=== PATIENT | female | born 1990 | race Caucasian/White ===

== ENCOUNTER 2017-10-31 17:25 | Inpatient (IN) | payer BC ==
[2017-10-31] MEDS ORDERED: Water For Irrigation,Sterile 1,000 ML Container IRR PRN (17:55)
[2017-10-31] MEDS ORDERED: Lidocaine 1% 50 ML MDV INJECT PRN (17:55)
[2017-10-31] MEDS ORDERED: Tranexamic Acid 1,000 MG in Sodium Chloride 0.9% 100 ML IV PRN (17:55)
[2017-10-31] MEDS ORDERED: Nalbuphine 10 MG/1 ML Vial IVPUSH PRN (17:55)
[2017-10-31] MEDS ORDERED: Sodium Chloride 0.9% 10 ML Syringe FLUSH PRN (17:55)
[2017-10-31] MEDS ORDERED: Carboprost Tromethamine 250 MCG/1 ML Amp IM PRN (17:55)
[2017-10-31] MEDS ORDERED: Methylergonovine 0.2 MG/1 ML Amp IM PRN (17:55)
[2017-10-31] MEDS ORDERED: Misoprostol 200 MCG Tab PO PRN (17:55)
[2017-10-31] MEDS ORDERED: Sodium Chloride 0.9% 2.5 ML Syringe FLUSH PRN (17:55)
[2017-10-31] MEDS ORDERED: Butorphanol 1 MG/ML SDV IVPUSH PRN (17:55)
[2017-10-31] MEDS ORDERED: Oxytocin/0.9 % Sodium Chloride 30 UNIT/500 ML BAG IV SCH (18:00)
[2017-10-31] MEDS: Lactated Ringers 1,000 ML IV SCH ×2 (19:22→20:07)
--- NOTE | 2017-10-31 19:26 | PCM.PREANE ---
Preanesthetic Assessment - Anesthesia/Transfusion/Family Hx Anesthesia History: Prior Anesthesia Without Reaction - Review of Systems General: No Symptoms Pulmonary: No Symptoms Cardiovascular: No Symptoms Gastrointestinal: No Symptoms Neurological: No Symptoms - Physical Assessment NPO Status Date: 10/31/17 NPO Status Time: 11:00 ASA Class: 2E Mental Status: Alert & Oriented x3 Dentition: Reports: Normal Dentition ROM/Head Extension: Full - Lab Values: Laboratory Last Values WBC 11.52 K/uL (4.0-11.0) H 10/31/17 18:20 RBC 4.43 M/uL (4.30-5.90) 10/31/17 18:20 Hgb 11.5 g/dL (12.0-16.0) L 10/31/17 18:20 Hct 36.0 % (36.0-46.0) 10/31/17 18:20 MCV 81.3 fL (80.0-98.0) 10/31/17 18:20 MCH 26.0 pg (27.0-32.0) L 10/31/17 18:20 MCHC 31.9 g/dL (31.0-37.0) 10/31/17 18:20 RDW Std Deviation 43.5 fl (28.0-62.0) 10/31/17 18:20 RDW Coeff of Roxanne 15 % (11.0-15.0) 10/31/17 18:20 Plt Count 239 K/uL (150-400) 10/31/17 18:20 MPV 11.90 fL (7.40-12.00) 10/31/17 18:20 Nucleated RBC % 0.0 /100WBC 10/31/17 18:20 Nucleated RBCs # 0 K/uL 10/31/17 18:20 - Allergies Allergies/Adverse Reactions: Allergies Allergy/AdvReac Type Severity Reaction Status Date / Time No Known Allergies Allergy Verified 10/31/17 19:12 - Acknowledgements Anesthesia Type Planned: Epidural Pt an Appropriate Candidate for the Planned Anesthesia: Yes Alternatives and Risks of Anesthesia Discussed w Pt/Guardian: Yes Pt/Guardian Understands and Agrees with Anesthesia Plan: Yes PreAnesthesia Questionnaire - CURRENT (IN HOUSE) MEDS Current Meds: Current Medications Butorphanol Tartrate (Stadol) 1 mg IVPUSH Q1H PRN PRN Reason: Pain Carboprost Tromethamine (Hemabate Ds) 250 mcg IM ASDIRECTED PRN PRN Reason: Post Hemorrhage Lactated Ringer's (Ringers, Lactated) 1,000 mls @ 150 mls/hr IV ASDIRECTED [facility] Last Admin: 10/31/17 19:22 Dose: 150 mls/hr Oxytocin/Sodium Chloride (Oxytocin 30 Unit/500 Ml-Ns) 30 unit in 500 mls @ 250 mls/hr IV TITRATE [facility] Tranexamic Acid 1,000 mg/ (Sodium Chloride) 110 mls @ 660 mls/hr IV ONETIME PRN PRN Reason: Bleeding Lidocaine HCl (Xylocaine 1%) 50 ml INJECT .ONCE PRN PRN Reason: Laceration repair Methylergonovine Maleate (Methergine) 0.2 mg IM ASDIRECTED PRN PRN Reason: Post Hemorrhage Misoprostol (Cytotec) 200 mcg PO .ONCE PRN PRN Reason: Post Hemorrhage Nalbuphine HCl (Nubain) 10 mg IVPUSH Q1H PRN PRN Reason: Pain (severe 7-10) Sodium Chloride (Saline Flush) 10 ml FLUSH ASDIRECTED PRN PRN Reason: Keep Vein Open Sodium Chloride (Saline Flush) 2.5 ml FLUSH ASDIRECTED PRN PRN Reason: Keep Vein Open Sterile Water (Sterile Water For Irrigation) 1,000 ml IRR ASDIRECTED PRN PRN Reason: delivery Discontinued Medications Fentanyl/Bupivacaine HCl (Gshhhwqx-Ecrvr-Te 2 Mcg/Ml-0.125%) Confirm Administered Dose 100 mls @ as directed [facility] ONE Stop: 10/31/17 19:06
--- NOTE | 2017-10-31 19:30 | PCM.PRNOTE ---
- Free Text/Narrative Note: Anes Note Patient requests epidural for L&D. Risks and menthods were discussed. Sitting POsition. L3-L4, midline approach. Bet prep X 3. LOcal 1% lido. 17X3 7/8 tuohy needls. Epidural space easily achieved single attempt with ease. Cath threaded 3 cm with ease. Sterile dressing applied. Test 3 cc 1.5 lido with epi negative. Load 10 cc pump solution, in slow divided doses. Pump started at 8 cc he with 6 cc q 20 min prn bolus. Sachin well. Patient reports excellent analgesia. Charlie Flores CRNA.
[2017-10-31] MEDS ORDERED: Lanolin 100% Cream 7 GM Tube TOP PRN (20:59)
[2017-10-31] MEDS ORDERED: Acetaminophen 500 MG Tab PO PRN ×2 (20:59)
[2017-10-31] MEDS ORDERED: Ibuprofen 400 MG Tab PO PRN (20:59)
[2017-10-31] MEDS ORDERED: Benzocaine/Menthol 20%-0.5% Spray 78 GM Cannister TOP PRN (20:59)
[2017-10-31] MEDS ORDERED: Bisacodyl 10 MG Supp RECTAL PRN (20:59)
[2017-10-31] MEDS ORDERED: Aluminum Hydroxide/Magnesium Hydroxide/Simethicone Susp 30 ML Cup PO PRN (20:59)
[2017-10-31] MEDS ORDERED: Witch Hazel Medicated Pads 40/Jar TOP PRN (20:59)
[2017-10-31] MEDS ORDERED: Docusate Sodium 100 MG Cap PO PRN (20:59)
[2017-10-31] MEDS ORDERED: Ondansetron 4 MG/2 ML SDV IVPUSH PRN (20:59)
--- NOTE | 2017-10-31 23:07 | OR ---
SURGEON: Nadya Abreu M.D. DATE OF PROCEDURE: 10/31/2017 PREOPERATIVE DIAGNOSES: 1. A 39 and 6 week intrauterine . 2. Active labor. 3. Group B beta strep negative. POSTOPERATIVE DIAGNOSES: 1. A 39 and 6 week intrauterine . 2. Active labor. 3. Group B beta strep negative. PROCEDURE: Spontaneous vaginal delivery, 1st degree periurethral laceration repaired. RN MATERNITY: Rhoda De Jesus MS4. ANESTHESIA: Epidural. ESTIMATED BLOOD LOSS: 300 mL. FINDINGS: Viable female with Apgars score 9 at one minute, 9 at five minutes. Weight is pending. Spontaneous delivery, intact placenta, three-vessel cord. COMPLICATIONS: None. DISPOSITION: The patient in LDRP. Infant in nursery. PROCEDURE IN DETAIL: Renata is a 27-year-old, G2, P1, at 39 and 6 weeks' gestational age, who presented this evening with regular contractions that were quite intense in nature beginning at 4:00 p.m. On exam, she was found to be 5 cm, 90% effaced, - 2 station. She is group B beta strep negative. heart tones 120s with variability. The patient was admitted. Routine labs were drawn. IV hydration was initiated. The patient is requesting epidural. She underwent this satisfactorily, became more comfortable and continued to progress quite rapidly. Over the next approximately an hour, she progressed to complete, 100% effaced at a +1 station. With pushing efforts, there was an amniotic bag that was still felt to be intact. Therefore, amniotomy was performed. Clear fluid was returned and with the next pushing, it was easily pushed to a +3 station. With the next contraction, I was able to deliver the 's head atraumatically, spontaneously, followed by anterior shoulder push and remainder of the body without difficulty. The 's oropharynx and nares were bulb suctioned. Cord was clamped x2 and cut. was handed off to her mother with attending nursing staff at side. Cord arterial, cord venous, cord blood sampling were obtained. Light suprapubic pressure was applied while the placenta was delivered spontaneously intact. Vigorous fundal uterine massage was then applied while 30 units Pitocin was delivered in 500 mL of IV fluid. Upon inspection of cervix, vaginal sidewalls, and perineum, there was found to be a first-degree right periurethral labial laceration that was repaired using 3-0 Monocryl in continuous running fashion. Hemostasis appeared evident. Sponge count was correct. Uterus remained firm. Hemostasis was evident. The patient remained in LDRP. Infant to nursery. ZACHARY / OLIVIA /[id number]
[2017-11-01] MEDS: Ibuprofen 800 MG Tab PO PRN ×2 (00:55→10:37)
[2017-11-01] MEDS: oxyCODONE 5 MG Tab PO PRN ×3 (01:06→21:25)
--- NOTE | 2017-11-01 07:50 | PCM.PNPP ---
<Viktoria De Jesus - Last Filed: 11/01/17 07:45> - General Info Date of Service: 11/01/17 Admission Dx/Problem (Free Text): 39/6 IUP, presented in active labor, . Subjective Update: Patient is doing well. Pain is tolerable with medication. Bottle feeding. Lochia - WNL. Tolerating food with no n/v. Urinating. No bowel movement or flatus present. Ambulating. Anticipate discharge this evening. Functional Status: Reports: Pain Controlled, Tolerating Diet, Ambulating, Urinating - Review of Systems General: Denies: Fever, Chills HEENT: Denies: Headaches Pulmonary: Denies: Shortness of Breath, Pleuritic Chest Pain Cardiovascular: Denies: Chest Pain, Palpitations, Lightheadedness Gastrointestinal: Denies: Flatus, Nausea, Vomiting - General Info Date of Service: 11/01/17 - Patient Data Vital Signs - Most Recent: Last Vital Signs Temp 36.8 C 11/01/17 07:37 Pulse 85 11/01/17 07:37 Resp 17 11/01/17 07:37 BP 130/71 11/01/17 07:37 Pulse Ox 98 11/01/17 07:37 Weight - Most Recent: 127.006 kg Lab Results - Last 24 Hours: Laboratory Results - last 24 hr 10/31/17 10/31/17 10/31/17 Range/Units 18:20 18:20 20:30 WBC 11.52 H (4.0-11.0) K/uL RBC 4.43 (4.30-5.90) M/uL Hgb 11.5 L (12.0-16.0) g/dL Hct 36.0 (36.0-46.0) % MCV 81.3 (80.0-98.0) fL MCH 26.0 L (27.0-32.0) pg MCHC 31.9 (31.0-37.0) g/dL RDW Std Deviation 43.5 (28.0-62.0) fl RDW Coeff of Roxanne 15 (11.0-15.0) % Plt Count 239 (150-400) K/uL MPV 11.90 (7.40-12.00) fL Nucleated RBC % 0.0 /100WBC Nucleated RBCs # 0 K/uL Cord ABG pH 7.374 (7.18-7.38) Cord ABG Base Excess -3 (-10--2) Cord VBG pH 7.341 (7.25-7.45) Cord VBG Base Excess -4 (-10--2) Blood Type B POSITIVE Antibody Screen NEGATIVE 11/01/17 Range/Units 06:03 WBC (4.0-11.0) K/uL RBC (4.30-5.90) M/uL Hgb 10.0 L (12.0-16.0) g/dL Hct 31.4 L (36.0-46.0) % MCV (80.0-98.0) fL MCH (27.0-32.0) pg MCHC (31.0-37.0) g/dL RDW Std Deviation (28.0-62.0) fl RDW Coeff of Roxanne (11.0-15.0) % Plt Count (150-400) K/uL MPV (7.40-12.00) fL Nucleated RBC % /100WBC Nucleated RBCs # K/uL Cord ABG pH (7.18-7.38) Cord ABG Base Excess (-10--2) Cord VBG pH (7.25-7.45) Cord VBG Base Excess (-10--2) Blood Type Antibody Screen Med Orders - Current: Current Medications Acetaminophen (Tylenol Extra Strength) 500 mg PO Q4H PRN PRN Reason: Pain Acetaminophen (Tylenol Extra Strength) 1,000 mg PO Q4H PRN PRN Reason: Pain Al Hydroxide/Mg Hydroxide (Mag-Al Plus) 30 ml PO Q8H PRN PRN Reason: Heartburn Benzocaine/Menthol (Dermoplast Pain Relief 20%-0.5% [place]) 78 gm TOP ASDIRECTED PRN PRN Reason: Perineal Comfort Measure Last Admin: 11/01/17 00:56 Dose: 1 spray Bisacodyl (Dulcolax) 10 mg RECTAL .ONCE PRN PRN Reason: Constipation Carboprost Tromethamine (Hemabate Ds) 250 mcg IM ASDIRECTED PRN PRN Reason: Post Hemorrhage Docusate Sodium (Colace) 100 mg PO BID PRN PRN Reason: Constipation Last Admin: 11/01/17 01:06 Dose: 100 mg Emollient Ointment (Lansinoh Hpa) 0 gm TOP ASDIRECTED PRN PRN Reason: Sore Nipples Lactated Ringer's (Ringers, Lactated) 1,000 mls @ 150 mls/hr IV ASDIRECTED [facility] Last Admin: 10/31/17 20:07 Dose: 150 mls/hr Oxytocin/Sodium Chloride (Oxytocin 30 Unit/500 Ml-Ns) 30 unit in 500 mls @ 250 mls/hr IV TITRATE [facility] Tranexamic Acid 1,000 mg/ (Sodium Chloride) 110 mls @ 660 mls/hr IV ONETIME PRN PRN Reason: Bleeding Ibuprofen (Motrin) 400 mg PO Q4H PRN PRN Reason: Pain Ibuprofen (Motrin) 800 mg PO Q6H PRN PRN Reason: Pain Last Admin: 11/01/17 00:55 Dose: 800 mg Methylergonovine Maleate (Methergine) 0.2 mg IM ASDIRECTED PRN PRN Reason: Post Hemorrhage Misoprostol (Cytotec) 200 mcg PO .ONCE PRN PRN Reason: Post Hemorrhage Nalbuphine HCl (Nubain) 10 mg IVPUSH Q1H PRN PRN Reason: Pain (severe 7-10) Ondansetron HCl (Zofran) 4 mg IVPUSH Q6H PRN PRN Reason: Nausea/Vomiting Oxycodone HCl (Oxycodone) 5 mg PO Q2H PRN PRN Reason: Pain Last Admin: 11/01/17 05:28 Dose: 5 mg Sodium Chloride (Saline Flush) 10 ml FLUSH ASDIRECTED PRN PRN Reason: Keep Vein Open Sodium Chloride (Saline Flush) 2.5 ml FLUSH ASDIRECTED PRN PRN Reason: Keep Vein Open Witch Frances (Tucks) 1 pad TOP ASDIRECTED PRN PRN Reason: comfort care Last Admin: 11/01/17 00:56 Dose: 1 pad Discontinued Medications Butorphanol Tartrate (Stadol) 1 mg IVPUSH Q1H PRN PRN Reason: Pain Fentanyl/Bupivacaine HCl (Quufhfks-Vbmyi-Yq 2 Mcg/Ml-0.125%) Confirm Administered Dose 100 mls @ as directed EP .STK-MED ONE Stop: 10/31/17 19:06 Lidocaine HCl (Xylocaine 1%) 50 ml INJECT .ONCE PRN PRN Reason: Laceration repair Sterile Water (Sterile Water For Irrigation) 1,000 ml IRR ASDIRECTED PRN PRN Reason: delivery Last Admin: 10/31/17 20:11 Dose: 1,000 ml - Infant Interaction Disposition, : in Room with Family Interaction: Holding Infant Feeding: Bottle Fed Infant Support Person: , Mother, Sister - Recovery Exam Fundal Tone: Firm Fundal Level: 2 Fingerbreadths Below Umbilicus Fundal Placement: Midline Lochia Amount: Scant Lochia Color: Rubra/Red Episiotomy/Laceration: Approximated Bladder Status: Voiding Urinary Elimination: Voided - Exam General: Alert, Oriented, No Acute Distress Lungs: Clear to Auscultation, Normal Respiratory Effort Cardiovascular: Regular Rate, Regular Rhythm GI/Abdominal Exam: Soft, Non-Tender Extremities: Pedal Edema (1+) Skin: Warm, Dry Psy/Mental Status: Alert - Problem List & Annotations (1) Vaginal delivery SNOMED Code(s): 463188799 Code(s): O80 - ENCOUNTER FOR FULL-TERM UNCOMPLICATED DELIVERY Status: Acute Current Visit: Yes - Assessment Assessment:: PPD #1. 39/6 IUP, presented in active labor, with . Stable. Anticipate discharge this evening. - Plan Plan:: Reviewed discharge instructions. Pelvic rest for 6 weeks. Take OTC ibuprofen/ tylenol as needed for pain. Call if fever greater than 101 or bleeding through a heavy pad in an hour. Reviewed post- depression symptoms. Follow-up appointment in 6 weeks. <Nadya Abreu - Last Filed: 11/01/17 08:08> - Patient Data Vital Signs - Most Recent: Last Vital Signs Temp 36.8 C 11/01/17 07:37 Pulse 85 11/01/17 07:37 Resp 17 11/01/17 07:37 BP 130/71 11/01/17 07:37 Pulse Ox 98 11/01/17 07:37 Lab Results - Last 24 Hours: Laboratory Results - last 24 hr 10/31/17 10/31/17 10/31/17 Range/Units 18:20 18:20 20:30 WBC 11.52 H (4.0-11.0) K/uL RBC 4.43 (4.30-5.90) M/uL Hgb 11.5 L (12.0-16.0) g/dL Hct 36.0 (36.0-46.0) % MCV 81.3 (80.0-98.0) fL MCH 26.0 L (27.0-32.0) pg MCHC 31.9 (31.0-37.0) g/dL RDW Std Deviation 43.5 (28.0-62.0) fl RDW Coeff of Roxanne 15 (11.0-15.0) % Plt Count 239 (150-400) K/uL MPV 11.90 (7.40-12.00) fL Nucleated RBC % 0.0 /100WBC Nucleated RBCs # 0 K/uL Cord ABG pH 7.374 (7.18-7.38) Cord ABG Base Excess -3 (-10--2) Cord VBG pH 7.341 (7.25-7.45) Cord VBG Base Excess -4 (-10--2) Blood Type B POSITIVE Antibody Screen NEGATIVE 11/01/17 Range/Units 06:03 WBC (4.0-11.0) K/uL RBC (4.30-5.90) M/uL Hgb 10.0 L (12.0-16.0) g/dL Hct 31.4 L (36.0-46.0) % MCV (80.0-98.0) fL MCH (27.0-32.0) pg MCHC (31.0-37.0) g/dL RDW Std Deviation (28.0-62.0) fl RDW Coeff of Roxanne (11.0-15.0) % Plt Count (150-400) K/uL MPV (7.40-12.00) fL Nucleated RBC % /100WBC Nucleated RBCs # K/uL Cord ABG pH (7.18-7.38) Cord ABG Base Excess (-10--2) Cord VBG pH (7.25-7.45) Cord VBG Base Excess (-10--2) Blood Type Antibody Screen Med Orders - Current: Current Medications Acetaminophen (Tylenol Extra Strength) 500 mg PO Q4H PRN PRN Reason: Pain Acetaminophen (Tylenol Extra Strength) 1,000 mg PO Q4H PRN PRN Reason: Pain Al Hydroxide/Mg Hydroxide (Mag-Al Plus) 30 ml PO Q8H PRN PRN Reason: Heartburn Benzocaine/Menthol (Dermoplast Pain Relief 20%-0.5% [place]) 78 gm TOP ASDIRECTED PRN PRN Reason: Perineal Comfort Measure Last Admin: 11/01/17 00:56 Dose: 1 spray Bisacodyl (Dulcolax) 10 mg RECTAL .ONCE PRN PRN Reason: Constipation Carboprost Tromethamine (Hemabate Ds) 250 mcg IM ASDIRECTED PRN PRN Reason: Post Hemorrhage Docusate Sodium (Colace) 100 mg PO BID PRN PRN Reason: Constipation Last Admin: 11/01/17 01:06 Dose: 100 mg Emollient Ointment (Lansinoh Hpa) 0 gm TOP ASDIRECTED PRN PRN Reason: Sore Nipples Lactated Ringer's (Ringers, Lactated) 1,000 mls @ 150 mls/hr IV ASDIRECTED [facility] Last Admin: 10/31/17 20:07 Dose: 150 mls/hr Oxytocin/Sodium Chloride (Oxytocin 30 Unit/500 Ml-Ns) 30 unit in 500 mls @ 250 mls/hr IV TITRATE [facility] Tranexamic Acid 1,000 mg/ (Sodium Chloride) 110 mls @ 660 mls/hr IV ONETIME PRN PRN Reason: Bleeding Ibuprofen (Motrin) 400 mg PO Q4H PRN PRN Reason: Pain Ibuprofen (Motrin) 800 mg PO Q6H PRN PRN Reason: Pain Last Admin: 11/01/17 00:55 Dose: 800 mg Methylergonovine Maleate (Methergine) 0.2 mg IM ASDIRECTED PRN PRN Reason: Post Hemorrhage Misoprostol (Cytotec) 200 mcg PO .ONCE PRN PRN Reason: Post Hemorrhage Nalbuphine HCl (Nubain) 10 mg IVPUSH Q1H PRN PRN Reason: Pain (severe 7-10) Ondansetron HCl (Zofran) 4 mg IVPUSH Q6H PRN PRN Reason: Nausea/Vomiting Oxycodone HCl (Oxycodone) 5 mg PO Q2H PRN PRN Reason: Pain Last Admin: 11/01/17 05:28 Dose: 5 mg Sodium Chloride (Saline Flush) 10 ml FLUSH ASDIRECTED PRN PRN Reason: Keep Vein Open Sodium Chloride (Saline Flush) 2.5 ml FLUSH ASDIRECTED PRN PRN Reason: Keep Vein Open Witch Frances (Tucks) 1 pad TOP ASDIRECTED PRN PRN Reason: comfort care Last Admin: 11/01/17 00:56 Dose: 1 pad Discontinued Medications Butorphanol Tartrate (Stadol) 1 mg IVPUSH Q1H PRN PRN Reason: Pain Fentanyl/Bupivacaine HCl (Bypkqcfl-Vmrxw-Qo 2 Mcg/Ml-0.125%) Confirm Administered Dose 100 mls @ as directed EP .STK-MED ONE Stop: 10/31/17 19:06 Lidocaine HCl (Xylocaine 1%) 50 ml INJECT .ONCE PRN PRN Reason: Laceration repair Sterile Water (Sterile Water For Irrigation) 1,000 ml IRR ASDIRECTED PRN PRN Reason: delivery Last Admin: 10/31/17 20:11 Dose: 1,000 ml - Problem List & Annotations (1) Vaginal delivery SNOMED Code(s): 709520268 Code(s): O80 - ENCOUNTER FOR FULL-TERM UNCOMPLICATED DELIVERY Status: Acute Current Visit: Yes - Problem List Review Problem List Initiated/Reviewed/Updated: Yes - My Orders Last 24 Hours: My Active Orders 10/31/17 17:55 Patient Status [ADT] Routine Heart Tones [RC] CONTINUOUS Non Stress Test [RC] PER UNIT ROUTINE Vaginal Exam [RC] PRN Vital Signs [RC] PER UNIT ROUTINE Carboprost Tromethamine [Hemabate DS] 250 mcg IM ASDIRECTED PRN Methylergonovine [Methergine] 0.2 mg IM ASDIRECTED PRN Misoprostol [Cytotec] 200 mcg PO .ONCE PRN Nalbuphine [Nubain] 10 mg IVPUSH Q1H PRN Sodium Chloride 0.9% [Saline Flush] 10 ml FLUSH ASDIRECTED PRN Sodium Chloride 0.9% [Saline Flush] 2.5 ml FLUSH ASDIRECTED PRN Tranexamic Acid [Cyklokapron] 1,000 mg Sodium Chloride 0.9% [Normal Saline] 100 ml IV ONETIME Peripheral IV Insertion Adult [OM.PC] Routine Resuscitation Status Routine 10/31/17 18:00 Lactated Ringers [Ringers, Lactated] 1,000 ml IV ASDIRECTED Oxytocin/0.9 % Sodium Chloride [Oxytocin 30 Unit/500 ML-NS] 30 unit in 500 ml IV TITRATE 10/31/17 20:59 Patient Status [ADT] Routine May Shower [RC] ASDIRECTED Up ad Rhianna [RC] ASDIRECTED Vital Signs [RC] PER UNIT ROUTINE Acetaminophen [Tylenol Extra Strength] 1,000 mg PO Q4H PRN Acetaminophen [Tylenol Extra Strength] 500 mg PO Q4H PRN Alum Hydrox/Mag Hydrox/Simeth [Mag-Al Plus] 30 ml PO Q8H PRN Benzocaine/Menthol [Dermoplast Pain Relief 20%-0.5% [place]] 78 gm TOP ASDIRECTED PRN Bisacodyl [Dulcolax] 10 mg RECTAL .ONCE PRN Docusate Sodium [Colace] 100 mg PO BID PRN Ibuprofen [Motrin] 400 mg PO Q4H PRN Ibuprofen [Motrin] 800 mg PO Q6H PRN Lanolin [Lansinoh HPA] See Dose Instructions TOP ASDIRECTED PRN Ondansetron [Zofran] 4 mg IVPUSH Q6H PRN Witch Frances [Tucks] 1 pad TOP ASDIRECTED PRN oxyCODONE 5 mg PO Q2H PRN Assess Lochia [WOMSER] Per Unit Routine Assess Uterine Involution [WOMSER] Per Unit Routine Breast Pump [WOMSER] Per Unit Routine Ice Therapy [OM.PC] Per Unit Routine Perineal Care [OM.PC] Per Unit Routine Peripheral IV Discontinue [OM.PC] Routine Sitz Bath [OM.PC] Per Unit Routine 10/31/17 Dinner Regular Diet [DIET] 11/01/17 08:07 Ready for Discharge [RC] PER UNIT ROUTINE - Plan Plan:: Patient seen and examined, agree with above
--- NOTE | 2017-11-01 08:16 | PCM48HPAN ---
Post Anesthesia Note - EVALUATION WITHIN 48HRS OF ANESTHETIC Vital Signs in Normal Range: Yes Patient Participated in Evaluation: Yes Respiratory Function Stable: Yes Airway Patent: Yes Cardiovascular Function Stable: Yes Hydration Status Stable: Yes Pain Control Satisfactory: Yes Nausea and Vomiting Control Satisfactory: Yes Mental Status Recovered: Yes Resp Rate: 17
== END 2017-11-01 22:35 | disposition home or self-care (01) | DRG 560 ==
LOC: MW.OBCHECK 17:25 → MW.OB 17:26 → MW.OBCHECK 17:55 → MW.OB 17:55 → OBSVTOIN 20:30 → MW.OB 23:31
PROVIDERS: ADMIT Obstetrics & Gynecology; ATTEND Obstetrics & Gynecology
PROC: 10E0XZZ Delivery of Products of Conception, External Approach (ICD-10-PCS; principal; 2017-10-31)
PROC: 0HQ9XZZ Repair Perineum Skin, External Approach (ICD-10-PCS; 2017-10-31)
DX: O70.0 First degree perineal laceration during delivery (principal); Z3A.39 39 weeks gestation of pregnancy; Z37.0 Single live birth
CPT/HCPCS: 36415; 59025; 59409; 82803; 85014; 85018; 85027; 86850; 86900; 86901; A9270-GY; J7120

== ENCOUNTER 2018-02-24 19:49 | Emergency (ER) | payer BC ==
--- NOTE | 2018-02-24 20:18 | EDM.PDOC ---
ED HPI GENERAL MEDICAL PROBLEM - General Chief Complaint: Headache Stated Complaint: MIGRAINE Time Seen by Provider: 02/24/18 20:29 Source of Information: Reports: Patient History Limitations: Reports: No Limitations - History of Present Illness INITIAL COMMENTS - FREE TEXT/NARRATIVE: HISTORY AND PHYSICAL: []27-year-old female presenting with a migraine headache for the last 4 days History of Present Illness: []Patient has history of cluster headaches and migraine headaches She has not taken anything [id number] for these headaches such as Excedrin Migraine or similar product Patient states she has not seen a neurologist when questioned Patient did have nausea and vomiting 2 days ago She is wearing her sunglasses due to the light hurting her eyes Review of Systems: As per history of present illness and below otherwise all systems reviewed and negative. Past medical history: As per history of present illness and as reviewed below otherwise noncontributory. Surgical history: As per history of present illness and as reviewed below otherwise noncontributory. Social history: No reported history of drug or alcohol abuse. Family history: As per history of present illness and as reviewed below otherwise noncontributory. Physical exam: Alert and oriented female speaking softly and is talking loud causes increased pain. Complaining of some neck pain but is able to touch her chin to her chest HEENT: Atraumatic, normocehpalic, pupils reactive, negative for conjunctival pallor or scleral icterus, mucous membranes moist, throat clear, neck supple, nontender, trachea midline. PERRLA, Lungs: Clear to auscultation, breath sounds equal bilaterally, chest non tender. Heart: S1S2, regular, negative for clicks, rubs, or JVD. Abdomen: Soft, nondistended, nontender. Negative for masses or hepatossplenmegaly. Negative for costovertebral tenderness. Pelvis: Stable nontender. Genitourinary: Deferred. Rectal: Deferred Extremities: Atraumatic, negative for cords or calf pain. Neurovascular unremarkable. Neuro: Awake, alert, oriented. Cranial nerves II through XII unremarkable. Cerebellum unremarkable. Motor and sensory unremarkable throughout. Exam nonfocal. Course of action: Patient is improved with the fluids and medications given Diagnostics: []CBC CMP Therapeutics: []1 L fluid Ativan Compazine Benadryl Toradol Impression: []Migraine Plan: []Discharge home Referral to Dr. Fatou Hobbs , neurologist Follow-up with your primary care in the next 2-3 days Return to emergency department as directed and discussed Definitive disposition and diagnosis as appropriate pending reevaluation and review of above. 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 - Physical Exam Exam: See Below (See dictation) Course - Vital Signs Last Recorded V/S: Last Vital Signs Temp 36.3 C 02/24/18 20:14 Pulse 80 02/24/18 20:14 Resp 16 02/24/18 20:14 BP 160/90 H 02/24/18 20:14 Pulse Ox 98 02/24/18 20:14 - Orders/Labs/Meds Orders: Active Orders 24 hr Category Date Time Status CULTURE STREP A CONFIRMATION [] Stat Lab 02/24/18 20:50 Results STREP SCRN A RAPID W CULT CONF [] Stat Lab 02/24/18 20:50 Ordered Sodium Chloride 0.9% [Normal Saline] 1,000 ml Med 02/24/18 20:28 Active IV STAT Sodium Chloride 0.9% [Saline Flush] Med 02/24/18 20:28 Active 10 ml FLUSH ASDIRECTED PRN Sodium Chloride 0.9% [Saline Flush] Med 02/24/18 20:28 Active 2.5 ml FLUSH ASDIRECTED PRN Saline Lock Insert [OM.PC] Stat Oth 02/24/18 20:28 Ordered Medication Orders Sodium Chloride (Normal Saline) 1,000 mls @ 999 mls/hr IV STAT ONE Stop: 02/24/18 21:28 Last Admin: 02/24/18 20:43 Dose: 999 mls/hr Sodium Chloride (Saline Flush) 10 ml FLUSH ASDIRECTED PRN PRN Reason: Keep Vein Open Sodium Chloride (Saline Flush) 2.5 ml FLUSH ASDIRECTED PRN PRN Reason: Keep Vein Open Labs: Laboratory Tests 02/24/18 02/24/18 Range/Units 20:36 20:36 WBC 10.98 (4.0-11.0) K/uL RBC 4.85 (4.30-5.90) M/uL Hgb 12.7 (12.0-16.0) g/dL Hct 39.7 (36.0-46.0) % MCV 81.9 (80.0-98.0) fL MCH 26.2 L (27.0-32.0) pg MCHC 32.0 (31.0-37.0) g/dL RDW Std Deviation 43.4 (28.0-62.0) fl RDW Coeff of Roxanne 15 (11.0-15.0) % Plt Count 310 (150-400) K/uL MPV 10.90 (7.40-12.00) fL Neut % (Auto) 58.6 (48.0-80.0) % Lymph % (Auto) 32.6 (16.0-40.0) % [place] % (Auto) 5.7 (0.0-15.0) % Eos % (Auto) 2.6 (0.0-7.0) % Baso % (Auto) 0.5 (0.0-1.5) % Neut # (Auto) 6.4 H (1.4-5.7) K/uL Lymph # (Auto) 3.6 H (0.6-2.4) K/uL [place] # (Auto) 0.6 (0.0-0.8) K/uL Eos # (Auto) 0.3 (0.0-0.7) K/uL Baso # (Auto) 0.1 (0.0-0.1) K/uL Nucleated RBC % 0.0 /100WBC Nucleated RBCs # 0 K/uL Sodium 135 L (136-145) mmol/L Potassium 3.7 (3.5-5.1) mmol/L Chloride 104 (98-107) mmol/L Carbon Dioxide 26.7 (21.0-32.0) mmol/L BUN 14 (7.0-18.0) mg/dL Creatinine 1.0 (0.6-1.0) mg/dL Est Cr Clr Drug Dosing 75.37 mL/min Estimated GFR (MDRD) > 60.0 ml/min Glucose 110 H (74-106) mg/dL Calcium 8.9 (8.5-10.1) mg/dL Total Bilirubin 0.1 L (0.2-1.0) mg/dL AST 15 (15-37) IU/L ALT 23 (14-63) IU/L Alkaline Phosphatase 96 (46-116) U/L Total Protein 7.4 (6.4-8.2) g/dL Albumin 3.2 L (3.4-5.0) g/dL Globulin 4.2 H (2.0-3.5) g/dL Albumin/Globulin Ratio 0.8 L (1.3-2.8) Meds: Medications Generic Name Dose Route Start Last Admin Trade Name Freelida PRN Reason Stop Dose Admin Sodium Chloride 1,000 mls @ 999 mls/hr 02/24/18 20:28 02/24/18 20:43 Normal Saline IV 02/24/18 21:28 999 mls/hr STAT ONE Administration Sodium Chloride 10 ml 02/24/18 20:28 Saline Flush FLUSH ASDIRECTED PRN Keep Vein Open Sodium Chloride 2.5 ml 02/24/18 20:28 Saline Flush FLUSH ASDIRECTED PRN Keep Vein Open Discontinued Medications Generic Name Dose Route Start Last Admin Trade Name Freq PRN Reason Stop Dose Admin Diphenhydramine HCl 25 mg 02/24/18 20:28 02/24/18 20:46 Benadryl IVPUSH 02/24/18 20:29 25 mg ONETIME ONE Administration Ketorolac Tromethamine 30 mg 02/24/18 20:28 08/22/18 20:45 Toradol IVPUSH 08/22/18 20:29 30 mg ONETIME ONE Administration Lorazepam 1 mg 02/24/18 20:28 02/24/18 20:43 Ativan IVPUSH 02/24/18 20:29 1 mg ONETIME ONE Administration Prochlorperazine Edisylate 10 mg 02/24/18 20:29 02/24/18 20:44 Compazine IM 02/24/18 20:30 10 mg ONETIME ONE Administration Departure - Departure Time of Disposition: 21:25 Disposition: Home, Self-Care 01 Condition: Good Clinical Impression: Migraine - Discharge Information *PRESCRIPTION DRUG MONITORING PROGRAM REVIEWED*: Not Applicable *COPY OF PRESCRIPTION DRUG MONITORING REPORT IN PATIENT DIANA: Not Applicable Instructions: Recurrent Migraine Headache, [id number] Referrals: PCP,None [Primary Care Provider] - Fatou Hobbs MD [Physician] - Forms: ED Department Discharge Additional Instructions: The following information is given to patients seen in the emergency department who are being discharged to home. This information is to outline your options for follow-up care. We provide all patients seen in our emergency department with a follow-up referral. The need for follow-up, as well as the timing and circumstances, are variable depending upon the specifics of your emergency department visit. If you don't have a primary care physician on staff, we will provide you with a referral. We always advise you to contact your personal physician following an emergency department visit to inform them of the circumstance of the visit and for follow-up with them and/or the need for any referrals to a consulting specialist. The emergency department will also refer you to a specialist when appropriate. This referral assures that you have the opportunity for followup care with a specialist. All of these measure are taken in an effort to provide you with optimal care, which includes your followup. Under all circumstances we always encourage you to contact your private physician who remains a resource for coordinating your care. When calling for followup care, please make the office aware that this follow-up is from your recent emergency room visit. If for any reason you are refused follow-up, please contact the [facility] emergency department at and asked to speak to the emergency department charge nurse. Discharge home Referral to Dr. Fatou Hobbs , neurologist [facility] - Neurology Professional Building [address] [place] [address], [address] [place] [address] Follow-up with your primary care in the next 2-3 days Return to emergency department as directed and discussed - My Orders Last 24 Hours: My Active Orders 02/24/18 20:28 Sodium Chloride 0.9% [Normal Saline] 1,000 ml IV STAT Sodium Chloride 0.9% [Saline Flush] 10 ml FLUSH ASDIRECTED PRN Sodium Chloride 0.9% [Saline Flush] 2.5 ml FLUSH ASDIRECTED PRN Saline Lock Insert [OM.PC] Stat 02/24/18 20:50 CULTURE STREP A CONFIRMATION [RM] Stat STREP SCRN A RAPID W CULT CONF [RM] Stat - Assessment/Plan Last 24 Hours: My Active Orders 02/24/18 20:28 Sodium Chloride 0.9% [Normal Saline] 1,000 ml IV STAT Sodium Chloride 0.9% [Saline Flush] 10 ml FLUSH ASDIRECTED PRN Sodium Chloride 0.9% [Saline Flush] 2.5 ml FLUSH ASDIRECTED PRN Saline Lock Insert [OM.PC] Stat 02/24/18 20:50 CULTURE STREP A CONFIRMATION [RM] Stat STREP SCRN A RAPID W CULT CONF [] Stat
[2018-02-24] MEDS ORDERED: diphenhydrAMINE 50 MG/ML SDV IVPUSH ONE (20:28)
[2018-02-24] MEDS ORDERED: Sodium Chloride 0.9% 2.5 ML Syringe FLUSH PRN (20:28)
[2018-02-24] MEDS ORDERED: Sodium Chloride 0.9% 1,000 ML IV ONE (20:28)
[2018-02-24] MEDS ORDERED: Ketorolac 30 MG/ML SDV IVPUSH ONE (20:28)
[2018-02-24] MEDS ORDERED: Sodium Chloride 0.9% 10 ML Syringe FLUSH PRN (20:28)
[2018-02-24] MEDS ORDERED: LORazepam 2 MG/ML SDV IVPUSH ONE (20:28)
[2018-02-24] MEDS ORDERED: Prochlorperazine 10 MG/2 ML SDV IM ONE (20:29)
[2018-02-24 21:23] LABS: CHLORIDE,CL 104 mmol/L (98-107); SODIUM,NA 135 mmol/L (136-145)
== END 2018-02-24 21:36 | disposition home or self-care (01) ==
LOC: MW.ED 19:49
DX: G43.909 Migraine, unspecified, not intractable, without status migrainosus (principal)
CPT/HCPCS: 36415; 80053; 85025; 87081; 87880; 96361; 96372; 96374; 96375; 99283; J0780; J1200; J1885; J2060; J7040